=== PATIENT | male | born 1980 | race Caucasian/White ===

== ENCOUNTER 2019-09-16 13:38 | Outpatient (CLI) | payer MEDICARE | END 2019-09-16 23:59 | disposition home or self-care (01) | LOC: CFH 13:38 | PROVIDERS: ATTEND Nurse Practitioner Family | DX: M47.812 Spondylosis without myelopathy or radiculopathy, cervical region (principal); R03.0 Elevated blood-pressure reading, without diagnosis of hypertension; R94.31 Abnormal electrocardiogram [ECG] [EKG] | CPT/HCPCS: 72040; 93306 ==